=== PATIENT | male | born 1965 | race American Indian/Alaskan Native ===

== ENCOUNTER 2020-05-14 07:07 | Emergency (ER) | payer SELFPAY ==
[2020-05-14 07:27] VITALS: BP 157/89
[2020-05-14] MEDS ORDERED: LIDOCAINE (1%) 10 MG/1 ML VIAL 20 ML MDV INFILTRATI ONE (08:25)
[2020-05-14] MEDS ORDERED: ACETAMINOPHEN 325 MG TAB PO ONE (08:25)
[2020-05-14] MEDS ORDERED: DIPHtheria,PERTUSSIS(ACELL),TETANUS VACCINE/PF 0.5 ML VIAL IM ONE (08:25)
--- NOTE | 2020-05-14 08:27 | Emergency Department Report ---
Upper Extremity - HPI Chief Complaint: Laceration/Recheck/Suture Stated Complaint: CUT RIGHT MIDDLE FINGER Time Seen by Provider: 05/14/20 08:19 Upper Extremity: Right Hand, Right Middle Finger (Laceration) Occurred When: Today Mechanism: Hit with Object (Finger got caught in fan blade) Symptoms: Yes Pain with Movement, Yes Swelling, Yes Laceration or Abrasion, No Deformity, No Limited Range of Movement, No Numbness, No Weakness, No Bruising/Ecchymosis Other History: 55-year-old male presents to the ER today with complaints of laceration to his right third finger. Patient states that while he was at work today his finger got caught in a fan blade. Patient states that he did have some mild numbness to the finger initially right after the injury but this has since resolved. He reports pain with movement of the finger but he is able to flex and extend the finger. Patient states that he is right-hand dominant. He reports no other symptoms at this time. ED Review of Systems ROS: Stated complaint: CUT RIGHT MIDDLE FINGER Other details as noted in HPI Comment: All other systems reviewed and negative Constitutional: denies: chills, fever Musculoskeletal: joint swelling, arthralgia Skin: other (Finger laceration) ED Past Medical Hx - Past Medical History Previous Medical History?: No - Surgical History Past Surgical History?: No - Social History Smoking Status: Current Every Day Smoker Substance Use Type: None - Medications Home Medications: Home Medications Medication Instructions Recorded Confirmed Last Taken Type Ibuprofen [Motrin] 800 mg PO Q8HR PRN #30 tablet 05/14/20 Unknown Rx cephALEXin [Keflex] 500 mg PO Q8HR #21 cap 05/14/20 Unknown Rx Upper Extremity Exam - Exam General: Vital signs noted. No distress. Alert and acting appropriately. Right third finger --there are 3 lacerations noted to the dorsal aspect of the right third finger; there is one measuring about 2 cm that appears to be superficial noted over the middle phalanx area; another 1 measuring approximately 2 cm and appears superficial noted across the DIP joint dorsally, and there is another one measuring about 1 cm and appears to be superficial at the fat pad of the finger. Patient has normal flexion extension of the PIP and DIP joints. No apparent tendon, or bony injury noted before cleaning wound. No deformity. There is mild swelling around the wounds, and there is tenderness to palpation over the DIP joint. Mild active bleeding noted from the lacerations but is controlled with pressure. Cap refill is normal. Sensation over the finger appears to be intact. strength of finger normal. No nail or nail bed injury Hand: Yes Digit Tenderness (There is tenderness to palpation to the DIP joint of the right third finger.), Yes Normal ROM in Digit(s), No Hand Tenderness, No Hand Deformity, No Digit(s) Deformity, No Tendon Dysfunction CMS Exam: Yes Normal Distal Pulses, Yes Normal Capillary Refill, Yes Normal Distal Sensation ED Course Vital Signs 05/14/20 07:26 Temperature 98.3 F Pulse Rate 91 H Respiratory 16 Rate Blood Pressure 157/89 [Right] O2 Sat by Pulse 98 Oximetry - Laceration /Wound Repair Right Dorsal Finger Wound Location: upper extremity (Right 3 finger ) Wound Length (cm): 5 (Total length of the 3 lacs) Wound's Depth, Shape: linear, irregular, stellate Wound Explored: possible partial tendon lac at level of DIP joint Irrigated w/ Saline (ccs): 40 Betadine Prep?: Yes Anesthesia: 1% Lidocaine Wound Debrided: minimal Wound Repaired With: sutures Suture Size/Type: 4:0, nylon Number of Sutures: 16 (16 total sutures ) Layer Closure?: No Sterile Dressing Applied?: Yes Progress: Patient tolerated procedure well without complications. - Nerve Block Consent Obtained: verbal consent Time Out Performed: No Local Anesthetic Used: Lidocaine 1% Amount of anesthesia used: 6 Side: right (Right middle finger) Nerve Blocks: digital Procedure Successful: Yes Complications: none Patient Tolerated Procedure: well, no complications ED Medical Decision Making - Radiology Data Radiology results: report reviewed - Medical Decision Making 0909 -- After thorough cleaning of the laceration that is over the DIP joint, there appeared to be what is concerning for partial flexor tendon laceration. Case was discussed with Dr. Pradhan, who also examined wound -agree that could be a partial tendon laceration. Patient finger will be placed in a splint, he will be given referral to Ortho, and he will be started on antibiotics. Discussed x-ray results which is negative for any foreign body or bony injuries with patient. Discussed concern for partial tendon tear with patient and the need for follow-up with nuclear medicine specialist. Patient expressed understanding of instructions and agrees with plan. Patient stable at time of discharge. Critical care attestation.: If time is entered above; I have spent that time in minutes in the direct care of this critically ill patient, excluding procedure time. ED Disposition Clinical Impression: Finger laceration, Tendon injury Disposition: TO HOME OR SELFCARE Is pt being admited?: No Does the pt Need Aspirin: No Condition: Stable Instructions: Finger Laceration (ED) Additional Instructions: Keep the splint on until you can follow-up with the nuclear medicine specialist. Take antibiotics as prescribed. It is important that you try to follow-up with nuclear medicine specialist this week or at least next week. Sutures typically need to be removed in about 12 to 14 days, but when you follow-up with nuclear medicine specialist they can advise you as to when you should have your sutures removed. Return to the ER if there is any signs and symptoms of infection such as pus drainage, increased redness swelling or pain to the finger. Prescriptions: cephALEXin [Keflex] 500 mg PO Q8HR #21 cap Ibuprofen [Motrin] 800 mg PO Q8HR PRN #30 tablet PRN Reason: Pain , Severe (7-10) Referrals: PRIMARY CAREMD [Primary Care Provider] - 3-5 Days DYLAN DOUGLAS MD [Staff Physician] - 3-5 Days Forms: Work/School Release Form(ED) Time of Disposition: 10:05
--- NOTE | 2020-05-14 08:50 | XRay Report ---
RIGHT FINGERS 3 VIEWS INDICATION: Laceration/right 3rd finger. COMPARISON: None. IMPRESSION: No acute osseous or soft tissue abnormality. No radiopaque foreign body is detected. No significant DJD. Signer Name: Jose Alfredo Taylor Jr, MD Signed: 05/14/2020 8:46 AM Workstation Name: [id number]
[2020-05-14] MEDS ORDERED: NEOMY 3.5 MG/BACIT 400 UNITS/POLY B 5000 UNITS/GM OINT PACKET TP ONE (10:22)
[2020-05-14] MEDS ORDERED: BACITRACIN/POLYMYXIN B OINT 28.35 GM TP ONE (10:30)
== END 2020-05-14 10:33 | disposition home or self-care (01) ==
LOC: ED 07:07
DX: S46.921A Laceration of unspecified muscle, fascia and tendon at shoulder and upper arm level, right arm, initial encounter (principal); F17.200 Nicotine dependence, unspecified, uncomplicated; Z79.899 Other long term (current) drug therapy; W26.9XXA Contact with unspecified sharp object(s), initial encounter; Y93.89 Activity, other specified; Y92.89 Other specified places as the place of occurrence of the external cause; Y99.8 Other external cause status
CPT/HCPCS: 12002; 73140; 90471; 90715; 99283; A6250

== ENCOUNTER 2020-05-28 10:48 | Emergency (ER) | payer SELFPAY ==
[2020-05-28 10:53] VITALS: BP 169/91
--- NOTE | 2020-05-28 11:11 | Emergency Department Report ---
ED General Adult HPI - General Chief complaint: Laceration/Recheck/Suture Stated complaint: SUTURES REMOVAL Time Seen by Provider: 05/28/20 10:53 Source: patient Mode of arrival: Ambulatory Limitations: No Limitations - History of Present Illness Initial comments: 55-year-old -[place] male patient presents for suture removal today. Sutures were placed in the right middle finger here in the ED on 05/14/2020 after sustaining lacerations from a fan blade. He rates his pain as a 2/10 in severity and states it has improved. He states there is mild numbness to the end of the finger, but denies any fever/chills/sweats, purulent drainage, redness, increased swelling, or difficulty moving his finger. Patient states he was compliant with the Keflex prescribed. Severity scale (0 -10): 0 - Related Data Previous Rx's Medication Instructions Recorded Last Taken Type Ibuprofen [Motrin] 800 mg PO Q8HR PRN #30 tablet 05/14/20 Unknown Rx cephALEXin [Keflex] 500 mg PO Q8HR #21 cap 05/14/20 Unknown Rx Clindamycin [Clindamycin CAP] 300 mg PO Q6H 10 Days #40 capsule 05/28/20 Unknown Rx Mupirocin [Bactroban 2% OINT] 1 applic TP TID 7 Days #1 tube 05/28/20 Unknown Rx Allergies Allergy/AdvReac Type Severity Reaction Status Date / Time No Known Allergies Allergy Verified 05/28/20 10:49 ED Review of Systems ROS: Stated complaint: SUTURES REMOVAL Other details as noted in HPI Constitutional: denies: chills, fever Gastrointestinal: denies: nausea, vomiting Musculoskeletal: denies: joint swelling, arthralgia Skin: denies: change in color Hematological/Lymphatic: denies: swollen glands ED Past Medical Hx - Past Medical History Previous Medical History?: No - Surgical History Past Surgical History?: No - Social History Smoking Status: Never Smoker Substance Use Type: None - Medications Home Medications: Home Medications Medication Instructions Recorded Confirmed Last Taken Type Ibuprofen [Motrin] 800 mg PO Q8HR PRN #30 tablet 05/14/20 Unknown Rx cephALEXin [Keflex] 500 mg PO Q8HR #21 cap 05/14/20 Unknown Rx Clindamycin [Clindamycin CAP] 300 mg PO Q6H 10 Days #40 capsule 05/28/20 Unknown Rx Mupirocin [Bactroban 2% OINT] 1 applic TP TID 7 Days #1 tube 05/28/20 Unknown Rx ED Physical Exam - General Limitations: No Limitations General appearance: alert, in no apparent distress - Head Head exam: Present: atraumatic, normocephalic - Eye Eye exam: Present: normal appearance - Respiratory Respiratory exam: Absent: respiratory distress - Cardiovascular Cardiovascular Exam: Present: regular rate - Extremities Exam Extremities exam: Present: full ROM, other (Sutures noted to right third finger with mild purulent drainage noted near the base of the nailbed; there is mild tenderness to palpation; patient has normal sensation and perfusion of the finger) - Back Exam Back exam: Present: normal inspection - Neurological Exam Neurological exam: Present: alert, oriented X3 ED Course Vital Signs 05/28/20 10:53 Temperature 98.2 F Pulse Rate 95 H Respiratory 20 Rate Blood Pressure 169/91 [Right] O2 Sat by Pulse 100 Oximetry - Procedure Description Procedures done: 16 simple sutures were removed from the right third finger. No bleeding occurred. There is mild wound dehiscence noted to the laceration at the base of the nailbed with mild purulent drainage; patient tolerated procedure well ED Medical Decision Making - Medical Decision Making 55-year-old -[place] male patient presents for suture removal today. Sutures were placed in the right middle finger here in the ED on 05/14/2020 after sustaining lacerations from a fan blade. He rates his pain as a 2/10 in severity and states it has improved. He states there is mild numbness to the end of the finger, but denies any fever/chills/sweats, purulent drainage, redness, increased swelling, or difficulty moving his finger. Patient states he was compliant with the Keflex prescribed. Sutures removed without difficulty. Wound infection noted with mild wound dehiscence. Patient is afebrile nontachycardic. Prescription for mupirocin and clindamycin given. Patient to follow-up with primary care in 2 days for wound recheck and concerning elevated blood pressure (he denies history of hypertension). Strict return precautions were discussed in detail with patient who verbalized understanding. Critical care attestation.: If time is entered above; I have spent that time in minutes in the direct care of this critically ill patient, excluding procedure time. ED Disposition Clinical Impression: Visit for suture removal, Wound infection, Elevated BP without diagnosis of hypertension Disposition: TO HOME OR SELFCARE Is pt being admited?: No Condition: Stable Instructions: Wound Infection, Wound Closure Removal, Care After, Hypertension, Adult Prescriptions: Mupirocin [Bactroban 2% OINT] 1 applic TP TID 7 Days #1 tube Clindamycin [Clindamycin CAP] 300 mg PO Q6H 10 Days #40 capsule Referrals: [facility] [Provider Group] - 2-3 Days
[2020-05-28] MEDS ORDERED: BACITRACIN ZINC OINT 28.4 GM TP STA (11:12)
[2020-05-28] MEDS ORDERED: NEOMY 3.5 MG/BACIT 400 UNITS/POLY B 5000 UNITS/GM OINT PACKET TP STA (11:28)
== END 2020-05-28 11:48 | disposition home or self-care (01) ==
LOC: ED 10:48
DX: T14.8XXA Other injury of unspecified body region, initial encounter (principal); R03.0 Elevated blood-pressure reading, without diagnosis of hypertension; Z48.02 Encounter for removal of sutures; Z79.899 Other long term (current) drug therapy; X58.XXXA Exposure to other specified factors, initial encounter
CPT/HCPCS: 87116; 99283; A6250